=== PATIENT | male | born 1935 | race Caucasian/White ===

== ENCOUNTER 2021-03-16 16:54 | Inpatient (IN) | payer OTHER ==
[~2021-03-16] VITALS: Ht 175.3 cm; Wt 62.6 kg
[2021-03-16 23:48] VITALS: BP 118/52
--- NOTE | 2021-03-17 05:39 | NUR ---
PATIENT CAME INTO THE UNIT AT 2340. HE IS ADMITED TO ROOM 521-A UNDER THE CARE OF DR COLLINS. HE IS ALERT AND ORIENTED. MAX ASSIST WITH CARE. HE IS CONFUSED AND FORGETFUL. ABLE TO VERBALIZE NEEDS. HE HAS A SKIN TEAR TO HIS RIGHT ARM. VITAL SIGN AT 118/52,18,59, 99%,97.0,WT IS 136.9 LBS. LUNGS ARE CLEAR, DENIES SI/AVH/HI. BS ACTIVE X4 QUAD, ABD IS SOFT AND NONE TENDER. LBM IS 03/16/21.HE IS INCONTINET OF BOWEL AND NURSES PROVIDED PERICARE. CALL TO THE DR FRANKLIN AND MEDS WERE VERIFIED.THE HOSPITALIST WAS CONSULTED.MURALI IS SLEEPING CALM IN BED AT THIS TIME. BED IS LOW, LOCKED AND ALARMED. YELLOW TOP AND SOCKS ON PER FALL PROTOCOL. CONSENT TO TREAT OBTAINED FROM DAUGHTER NITO MACK. Q 12 MINUTES CHECK IS ONGING. CONTINUE CARE AND MONITOR.
[2021-03-17 05:44] LABS: ABSOLUTE NEUTROPHILS 1.6 thou/uL (1.4-8.2); BASOPHILS 1.4 % (0.0-2.0); EOSINOPHILS 1.3 % (0.0-3.0); HEMATOCRIT 27.7 % (42.0-52.0); HEMOGLOBIN 9.6 gm/dL (14.0-18.0); LYMPHOCYTES 52.6 % (24.0-44.0); MCH 33.7 pg (26.0-34.0); MCHC 34.5 g/dL (28.0-37.0); MCV 97.7 fL (80.0-100.0); MONOCYTES 8.5 % (1.0-8.0); PLATELET COUNT 284 thou/uL (150-400); POLYS 36.2 % (36.0-66.0); RBC 2.84 mil/uL (4.50-6.00); RDW 15.9 % (10.5-14.5); WBC 4.6 thou/uL (4.0-11.0)
[2021-03-17 06:08] LABS: CHOLESTEROL 108 mg/dL (<200); HDL CHOLESTEROL 39 mg/dL (>40); LDL CHOLESTEROL 50 mg/dL (<100); TC:HDL 2.8 Ratio (Not establshd); TRIGLYCERIDE 97 mg/dL (<150); VLDL 19 mg/dL (<40)
[2021-03-17 06:09] LABS: SERUM ASSESSMENT Clear
[2021-03-17 07:45] VITALS: BP 130/64
[2021-03-17 09:18] LABS: % SATURATION 46 % (20-39); IRON 50 ug/dL (65-175); TIBC 108 ug/dL (250-450)
[2021-03-17 09:21] LABS: FOLIC ACID 16.4 ng/mL (8.6-58.9)
[2021-03-17 09:31] VITALS: BP 130/64
--- NOTE | 2021-03-17 13:31 | NUR ---
Alert and orientated to name only. Denies SI/HI. Initially refused to get out of bed for breakfast, compliant on second approach. Calm, cooperative and compliant with meds. Refused to leave room for lunch, approached 3 times. Ambulates with walker with regular, steady gait. Breath sounds clear. Reg HR auscultated. Color pink with brisk capillary refill and palpable peripheral pulses. No edema. Voided large amt yellow urine in toilet and then was incontinent of urine. Initially refused to change clothes but then was compliant with assistance. Bladder scanned x 3 around noon 108-131. Hyperactive bowel sounds over soft, flat abdomen. Currently sleeping in bed without s/o distress.
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
[2021-03-17 19:46] VITALS: BP 111/60
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
--- NOTE | 2021-03-18 02:08 | NUR ---
03-17-21 CARE TRANSFERRED 1899. LATER PT RESTING IN BED WITH EYES CLOSED, EASILY AWAKEN TO VOICE, PT AAOX1, VSS, RR EVEN AND NONLABORED ON RA. PT DENIES SI/HI AND PAIN. PT HAD NO DIFFICULTY TAKING MEDICATION WHOLE WITH WATER. PT PRESENTS DROWSY AND CALM. PT WILL CONTINUE TO BE MONITOR PER [facility] PROTOCOL.
[2021-03-18 09:16] VITALS: BP 79/38
--- NOTE | 2021-03-18 11:41 | NUR ---
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 Other Hx diabetes well controlled with A1C of 7. Folate wnl, on B12 supplementation. Chart notes pt had poor intake and wt loss prior to admit (unknown quantity). Since admit has eaten 80-100% of meals and took HS snack. Can offer glucerna shake 1x day until further intake trends identified. Otherwise low nutrition risk
--- NOTE | 2021-03-18 17:26 | NUR ---
Assumed pt care at 0700. pt was in his room sleeping. Alert and oriented to self. pt was confused. Vital sign stable. No c/o pain at this time. Denies si/hi. calm, cooperative with care and assessments. Took meds whole with thin liquid, no difficulty noted. Ambulates with a walker. Pt AM blood pressure was low. DR Pedroza and DR Olmedo notified. Blood pressure meds were held. 0.9% 500ml sodium chloride was administered. pt had 3 voids this shift. AT this time pt is in the day room eating dinner. Will continue to monitor.
[2021-03-18 20:13] VITALS: BP 108/50
--- NOTE | 2021-03-19 03:21 | NUR ---
03-18-21 CARE TRANSFERRED 1899. LATER PT PRESENTS DROWSY BUT EASIY AWAKEN TO VOICE, PT AAOX1, VSS, RR EVEN AND NONLABORED ON RA. PT DENIES PAIN AND SI/HI. ASSISTED PT TO BATHROOM, VOIDED, YELLOW IN TOLIET. PT BED WAS ADJUSTED FOR COMFORT, LOWEST POSITION, LOCKED AND ALARM ON. DURING MEDICATION ADMIN PT HAD NO DIFFICULTIES TAKING MEDICATION WHOLE WITH WATER. PT WILL CONTINUE TO BE MONITOR PER [facility] PROTOCOL.
--- NOTE | 2021-03-19 14:15 | NUR ---
Assumed pt care at 0700. pt was in his room awake. alert and oriented to person. pt was uncooperative with care. Denies si/hi, denies pain. refused meds, refused vital sign and blood sugar assessments. Pt was irritable, aggressive towards staff. COMPLIANCE ENGINEER PRODUCTS AND SENIOR JAVASCRIPT DEVELOPER tried to assist pt. Pt refused. DR Pedroza was notified of pt behavior. assessed pt. PRN Olanzapine 3.75mg was ordered and administered for increased agitation. pt have a skin tear on both arms as a result of his aaggressive and combative behaviors. Gauze was wrapped around pt skin tears. Pt ate lunch. AT this time pt is cooperative with care. AMbulates with a walker. will continue to monitor.
[2021-03-19 16:24] VITALS: BP 138/56
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
--- NOTE | 2021-03-20 09:10 | NUR ---
PT AGITATED THIS MORNING. YELLING. PT REFUSED MEDICAIONS IM INJECTION GIVEN. PT ALSO REFUSED ACCU CHECK AND BREAKFAST. VSS PT REFUSED TO ANSWER ANY ASSESSMENT QUESTIONS. PT UP WALKING AROUND THE UNIT WITH WALKER. WILL CONTINUE TO MONITOR.
[2021-03-20 09:26] VITALS: BP 130/58
[2021-03-20 19:20] VITALS: BP 120/57
[2021-03-20 20:10] VITALS: BP 120/57
--- NOTE | 2021-03-21 03:24 | NUR ---
PATIENT CARE WAS RESUMED AT 1900. HE IS ALERT AND ORIENTED. MODERATE ASSIST WITH CARE. HE WAS IN BED RELAXING AND HE DENIES PAINS/SI/AVH/HI. HE IS CONTINET OF BOWEL AND BLADDER AND ABLE TO VERBALIZE NEEDS. TOOK HIS MEDS WHOLE. NO BEHAVOUR NOTED AT THIS TIME.BED IS LOW, LOCKED AND ALARMED.Q 12 MINUTES CHECK IS ONGONG . CONTINUE CARE AND MONITOR.
[2021-03-21 09:45] VITALS: BP 91/32
--- NOTE | 2021-03-21 10:00 | NUR ---
Assumed pt care at 0700. Pt was in his room sleeping. Alert and oriented to person. Active bowel sounds, lung clear on auscultation, NO c/o pain. Denies si/hi. No sign of acute distress upon assessments. Calm and cooperative with care. Took meds whole, no difficulty noted. Ambulates with a walker. Makes needs known to staff. At this time, pt have voided twice. Pt is currently in his room awake. Will continue to monitor.
[2021-03-21 20:32] VITALS: BP 118/56
[2021-03-22 10:22] VITALS: BP 127/65
--- NOTE | 2021-03-22 17:50 | NUR ---
Assumed pt care at 0700. pt was in his room resting. Alert and oriented to self. Assessments completed, vss. Denies si/hi, denies pain. Took meds whole with thin liquid, no difficulty noted. Pt ambulates with a walker. calm and cooperative with care. No sign of acute distress noted upon assessments. pt attended activities. At this time pt is in his room resting.
[2021-03-22 19:21] VITALS: BP 116/51
[2021-03-22 20:07] VITALS: BP 116/51
--- NOTE | 2021-03-23 04:19 | NUR ---
PATIENT CARE WAS RESUMED AT 1900. HE IS ALERT AND WAS RESTING IN BED. ABLE TO VERBALIZE HIS NEEDS. HE IS A MODERATE ASSIST WITH CARE. ABD IS SOFT NONE TENDER. HE TOOK HIS MEDS WHOLE . LUNGS ARE CLEAR , BS ACTIVE X4 QUAD. HE IS ON FALL PROTOCOL. NO BEHAVIOR NOTED AT THIS TIME. HE DENIES PAINS/SI/AVH/HI. BED IS LOW, LOCKED AND ALARMED. YELLOW TOP AND NONE SKID SOCK ON. q12 MINUTES CHECK IS ONGOING. CONTINUE CARE.
[2021-03-23 09:46] VITALS: BP 93/60
--- NOTE | 2021-03-23 11:18 | NUR ---
RT Progress Note- Maximo's presence in the milieu has been slim, as he is unhappy with his admission and chooses to keep to himself during unscheduled time. Maximo is now compliant with requests for him to attend groups and participates moderately. Mood remains angry and frustrated. DISC RECORDIST will continue to encourage participation and progress towards goals.
--- NOTE | 2021-03-23 14:31 | NUR ---
DUANE recieved a call from Carlene. Carlene inquired if a production editor could look at the Pt's toes while on the unit. DUANE informed this request would be given to the doctor. However it may not be possible and Pt would need an outpt appointment to be seen by a production editor. Carlene also inquired about placement for the Pt. DUANE referred Carlene to the Medicare.gov website to search facilities. DUANE also encouraged Carlene to start looking at facilities and let DUANE know where she would like referrals sent to. Carlene had no further questions or concerns. DUANE will continue to follow
--- NOTE | 2021-03-23 16:05 | NUR ---
Assumed pt care at 0700. pt was in his room sleeping. Alert and oriented to person, place, and Time. calm and cooperative with care. Denies si/hi, denies pain at this time. Assessments completed, vss. Took meds whole, no difficulty noted. Ambulates with a walker. Dressing change to skin tears, to both arms. No sign of acute distress noted upon assessments. AT this time pt is in his room resting. WILL CONTINUE TO MONITOR.
[2021-03-23 20:10] VITALS: BP 131/69
[2021-03-23 20:30] VITALS: BP 131/69
--- NOTE | 2021-03-24 05:17 | NUR ---
PATIENT CARE WAS RESUMED AT 1900. HE IS ALERT AND ORIENETED. CALM ABD ABLE T TO VERBALIZE HIS NEEDS. HE DENIES PAINS /SI/AVH/HI. HE IS CONTINIET OF BOWEL AND BLADDER. BED IS LOW, LOCKED AND ALARMED. HE TOOK HIS MEDS WHOLE. NO BEHAVOIR NOTED THIS SHIFT. ABD IS SOFT, FLAT AND NONE TENDER AND LUNGS ARE CLEAR. CONTINUE CARE AND [id number] CHECKS ARE ONGONIG.
[2021-03-24 09:28] VITALS: BP 100/54
--- NOTE | 2021-03-24 09:52 | NUR ---
followup: remains on [facility] unit. Eating >75% most meals, wt up 5 lb and new BMI 21-healthy range. BG controlled. Continue to offer glucerna shake for now. Remains low nutrition risk
--- NOTE | 2021-03-24 16:25 | NUR ---
Assumed patient care at 0700, patient was sitting in the day room, alert and oriented x4, calm and pleasant, VSS, ate 100% of his meal, active bowel sound, lungs clear, attend groups and paticipated, he took his medication whole, ambulate with walker, he is able to verbalized needs, he denies HI/SI/AVH. will continue to monitor patient.
--- NOTE | 2021-03-24 17:31 | NUR ---
DUANE recieved a call from the Pt's , Lissette Bauer. SW provided an update on the Pt. DUANE infomred that Pt's behaviors have improved and referral can now be sent out. Lissette expressed being happy to hear this information. Lissette wanted to know if talking to the Pt would be okay or would it upset him. DUANE encouraged family call at this time espicially with the improved behaviors Pt may enjoy calls from family. DUANE transfered the call to the frontend engineer for the Pt to speak with Lissette.
[2021-03-24 20:02] VITALS: BP 124/49
[2021-03-24 20:30] VITALS: BP 124/49
--- NOTE | 2021-03-25 05:12 | NUR ---
[facility] CARE WAS RESUMED AT 1900. HE WAS IN BED. ALERT AND ORIENTED. SHE DENIES PAINS AND BS ACTIVE , LUNGS ARE CEAR, BS CTIVE X 4 QUADS. HE IS CONTINIET OF BOWEL AND BLADER. BED IS LOW , LOCKED AND ALARMED. Q 12 MINUTES CHECK. NO BEHAVOUR NOTED THIS SHIFT. Q 12MINUES CHECK FOR SAFETY. HE TOOK IS MEDS WHOLE.
--- NOTE | 2021-03-25 11:34 | NUR ---
Care of patient was resumed at 0700, patient was still in bed sleeping, came out for breakfast, B/P 124/49 with pulse of 105, patient complained of being tired, doctor Jacinta said he will talk to doctor Yovany to adjust his medication. Patient was calm and cooeprative during assessment, he is alert and oriented x4, active bowel sound, lungs clear, RR even and nonlabored on room air, he ambulate with walker, incontinent of bladder and bowel. Patient denies SI/HI/AVH, will continue to monitor patient.
--- NOTE | 2021-03-25 15:57 | NUR ---
SW sent referrals to the following facilities: [facility] Nito [facility]- Declined due to behaviors Feliz Zhu and [facility] SW will follow up
--- NOTE | 2021-03-25 16:34 | NUR ---
Patient fall risk precaution has been updated due to patient getting weaker, he is now incontinent of bladder. will continue to monitor.
--- NOTE | 2021-03-25 17:53 | NUR ---
Patient insulin was held for dinner due to patient refused to eat. doctor Yovany was notified,
[2021-03-25 19:30] VITALS: BP 131/68
[2021-03-25 19:31] VITALS: BP 188/90
[2021-03-25 19:33] VITALS: BP 131/57
[2021-03-25 20:05] VITALS: BP 131/68
--- NOTE | 2021-03-25 22:16 | NUR ---
Assumed care on 03/25/21 @ 1900, no behaviors noted this evening. VSS cooperated with assesssment and compliant with medications, taking meds whole with applesauce and water. PRN Tylenol 650mg for general pain of 6/10. Retired to bed @ , bed in low position, bed alarm set, will continue to monitor for safety and comfort.
--- NOTE | 2021-03-26 10:54 | NUR ---
RELUCTANT TO ATTEND AM GROUPAND DID ATTEMPT T0 GO TO ROOM AFTER BREAKFAST-INFORMED OF ROOM LOCK OUT- APPEARS PERPLEXED STATING "I CAN'T LAY DOWN" AND "WHY WOULD ROLO LOCK ME OUT"ORIENTED TO NAME ONLY-REFUSES TO COMPLY WITH FALLS PRECAUTIONS - HE REPEATDLY HAS STATED HE WOULD ASK FOR HELP PRIOR RO STNADING UP -APPROX 20 MINUTES LATER WHEELED SELF BACK TO ROOM-TURNED OFF CHAIR ALARM AND GOT SELF INTO BED-CONSTRICTED AFFECT. DENIES SI/SH/HI. DENIES C/O PAIN/DSICOMFORT
[2021-03-26 20:04] VITALS: BP 96/42
--- NOTE | 2021-03-27 01:24 | NUR ---
Assumed care on 03/26/21 @ 1900, seated in the day room at a table. Provided medications whole with water. A&Ox1 Ate an evening snack and retired to bed. Has trouble swollowing his meds whole and rolled meds around in his mouth for quite a while before being able to swollow. Bed in low position, will continue to monitor for safety and comfort as per unit protocol.
--- NOTE | 2021-03-27 19:48 | NUR ---
HAS BEEN NOTED TO IMMEDIATLY GO INTO ROOM AT END OF GROUP AND WILL NOT COME BACK OUT OF BED WITHOUT STAFFBRINGING HIM OUT-DENIES PAIN OR DISCOMFORT STATING "I JUST WANT TO SLEEP""I DON'T WANT TO EAT OR DO ANY OF THAT OTHER STUFF JUST LEAVE ME ALONE" ROOMJENNITE HAS REQUIRED SEVERAL IM MEDS TODAY AND LAST PM AND PT REPORTS THAT THIS IS UPSETTING HIM AND KEPT HIM AWAKE MOST OF THE NIGHT. REFUSED TO COME OUT TO EAT SUPPER AND REFUSED TRAY WHEN BROUGHT TO ROOM STATING DIDN'T WANT IT. BLOOD SUGAR AT 1630 173-S.S INSULIN 3 UNITS HELD D/T PT REFUSAL TO EAT =DR. WHITE CONTACTED . NO NEW ORDERS RECEIVED. USINFG ROLLER WALKER FOR AMBULATION-GAIT STEADY WITH ASSISTIVE DEVICE. DENIES SI/SH
[2021-03-27 20:00] VITALS: BP 96/42
--- NOTE | 2021-03-28 00:14 | NUR ---
PT. MOVED TO 525 D/T ROOMMATE YELLING AND BEING AGITATED.
--- NOTE | 2021-03-28 00:16 | NUR ---
AT BEGINNING OF SHIFT PT WAS IN BED RESTING WITH EYES CLOSED BUT DID WAKE UP TO TAKE HIS MEDICATIONS WITHOUT ANY DIFFICULTY IS CALM AND COOPERATIVE.ALERT WITH SOME CONFUSION. EVERY 12 MINUTE CHECKS. DENIES PAIN OR DISCOMFORT AT THIS TIME. CONTINENT BUT HAS EPISODES OF INCONTINENCE WHEN HE DOESN'T MAKE IT TO THE BATHROOM ON TIME. NO SI/AVH/HI.
--- NOTE | 2021-03-28 03:51 | NUR ---
At about midnight went into pt room 521A because his roommate was screaming and hollering, shaking bed rails and keeping this pt awake. Pt voiced fustration. I discussed I understood and gave the option of moving him to another room. Pt initially was going to stay in the room but decided he would like to try to move to the other room. Pt is not as impulsive as he was when he admitted so he is able to be in a room not as close to the nurses station. Pt was relocated to 525b and he looked more relaxed. bed alarms set and Q 12min checks remain in place. will continue to monitor.
[2021-03-28 05:20] VITALS: BP 91/71
[2021-03-28 06:05] VITALS: BP 96/42
[2021-03-28 06:20] VITALS: BP 99/50
--- NOTE | 2021-03-28 06:37 | NUR ---
At about 5:20 notified that pt was found on the floor, unwitnessed fall, Went to pt room, pt assisted with getting off the floor, pt did have multiple skin tears noted on his left arm and they were bleeding, cleansed, non adherent bandage applied and wrapped with coban, Pt does endorse that he hit his head, Pt was able to move all of his extremities and denies pain, no bruising noted to his head. Shanta TOLENTINO notified at 0530 and since it was an unwitnessed fall and pt endorsed that he hit his head a CT Scan w/o contrast was ordered. Cortez ROLLINS notified pt daughter Carlene, and she would like to be notified of CT results or of any changes. Post fall precaution completed, vitals are stable, pt Mentation status is at baseline. Careplan updated.
[2021-03-28 09:06] VITALS: BP 98/49
[2021-03-28 19:00] VITALS: BP 94/43
--- NOTE | 2021-03-28 19:37 | NUR ---
Assumed care on 03/28/21 @ 1900, in bed respirations even and unlabored, HRRR, breath sounds CTA bilat, ABD N x 4Q. Bed in low position, bed alarm set, will continue to monitor for safety and comfort.
[2021-03-28 19:49] VITALS: BP 94/43
[2021-03-29 09:27] VITALS: BP 97/48
[2021-03-29 10:44] VITALS: BP 101/68
--- NOTE | 2021-03-29 12:15 | NUR ---
1215 RESUMMED CARE FROM OVERNIGHT SHIFT THIS AM, PATIENT SITTING IN THE DAY ROOM QUIET. DURING BREAKFAST PATIENT TALKED ZARIA العراقي ABOUT HIS STAY IN [place]. PATIENT DENIES SI/HI/AH/VH AT PRESENT PATIENTS ABDOMEN SOFT BOWEL SOUNDS PRESENT. PATIENTS LUNGS CLEAR PATIENT CALM COOPERATIVE HAS NOT DISPLAYED ANY BEHAVIORS. PATIENT DOES ATTEND GROUPS BUT ALSO LIKES TO GO TO ROOM TO REST. PATIENT STATES SOME OF THE PATIENTS ARE GETTING ON HIS NERVES. WILL CONTINUE PATIENT FOR SAFETY AND BEHAVIORS.
[2021-03-29 19:35] VITALS: BP 117/52
[2021-03-30 09:09] VITALS: BP 116/56
[2021-03-30 09:47] VITALS: BP 116/56
--- NOTE | 2021-03-30 10:40 | NUR ---
1040 RESUMMED CARE FROM OVERNIGHT SHIFT THIS AM, PATIENT SITTING IN DAY ROOM QUIET. PATIENT ATE BREAKFAST TOOK MEDICATION WITHOUT INCIDENCE; PATIENT DENIES SI/HI/AH/VH AT PRESENT. PATIENT ORIENTED TIMES 4 PATIENT ABDOMEN SOFT BOWEL SOUNDS PRESENT. PATIENTS LUNGS CLEAR PATIENT CALM COOPERATIVE PATIENT LIKES TO BE TO SELF. WILL CONTINUE TO MONITOR PATIENT FOR SAFETY AND BEHAVIORS.
--- NOTE | 2021-03-30 14:03 | NUR ---
RT Progress Note- Maximo's presence in the milieu and recreation therapy groups has been inconsistent throughout this review period. Maximo prefers to keep to himself and remains in his room between meals. He does not always attend groups because of this. When awake and present, Maximo has been pleasant and has not shown aggression or agitation. RADIO COMMUNICATION COORDINATOR will continue to encourage progress towards goals.
[2021-03-30 19:00] VITALS: BP 105/51
--- NOTE | 2021-03-31 03:13 | NUR ---
03-30-21 CARE TRANSFERRD 1899. LATER PT AAOX2, VSS, RR EVEN AND NONLABORED ON RA. PT DENIES PAIN AND SI/HI. PT PRESENTS CALM AND COOPERATIVE. STANDBY, OBSERVED PT GETTING OUT OF BED WITH WALKER AND GOING TO BATHROOM, PT HAD NO DIFFICULTIES VOIDING, YELLOW IN TOLIET. DURING MEDICATION ADMIN PT HAD NO PROBLEMS, PT BED WAS ADJUSTED FOR COMFORT, LOWEST POSITION, LOCKED, ALARM ON. LATER RESPONSED TO PT BED ALARM AND STANDBY ASSIST PT USING WALKER TO TOLIET, PT HAD NO DIFFICULTIES VODING, YELLOW, IN TOLIET. PT WANTED TO GO TO DAY ROOM, EARLIER PT HAD REFUSED HS SNACK, BUT AT THIS TIME HE REQUESTED A SNACK, PT HAD PEANUT BUTTER AND CRACKERS, WITH CARTON OF MILK. LATER NOTED PT RESTING IN RECLINER WITH EYES CLOSED. PT WILL CONTINUE TO BE MONITOR PER [facility] PROTOCOL.
--- NOTE | 2021-03-31 08:22 | NUR ---
Nutrition follow up: Remains on [facility] unit. Noted with variable intakes at meals but requesting snacks as alternative. 100% intakes Glucerna. Weight stable. BG remains controlled. Remains low nutrition risk.
--- NOTE | 2021-03-31 12:45 | NUR ---
[facility] [place]
--- NOTE | 2021-03-31 12:47 | NUR ---
[facility] due to behavioral concerns [place]- due not being able to meet the Pt's needs
--- NOTE | 2021-03-31 12:52 | NUR ---
Alert and orientated to person and place. Denies SI/HI. Cooperative with getting out of bed for meals and groups. Happy affect today. Denies SI/HI. Compliant with meds. Breath sounds clear. Reg HR auscultated. Color pink with brisk capillary refill and palpable peripheral pulses. Independent with voiding. Bladder scan 75-88 cc. Active bowel sounds over soft, flat abdomen. Healing skin tears over forearms and lower arms, open ones cleaned with NS and dressed with nonadhesive drsg and coban. Ambulates with walker with regular, steady gait.
[2021-03-31 19:41] VITALS: BP 100/82
[2021-03-31 19:43] VITALS: BP 100/52
--- NOTE | 2021-04-01 04:35 | NUR ---
03-31-21 CARE TRANSFERRED 1899. LATER PT AAOX2, VSS, RR EVEN AND NONLABORED ON RA, PT DENIES PAIN AND SI/HI. PT PRESENTS PLESANT, CALM AND COOPERATIVE AND SPEAKES ABOUT HIS TIME IN . OBSERVED PT AMBULATE TO BATHROOM WITH WALKER, VOID IN TOLIET. DURING MEDICATION PT HAD NO DIFFICULTIES TAKING MEDICATION WHOLE WITH WATER, PT BED WAS ADJUSTED FOR COMFORT. LATER NOTED PT RESTING WITH EYES CLOSED. PT WILL CONTINUE TO BE MONITOR PER [facility] PROTOCOL.
[2021-04-01 09:42] VITALS: BP 109/56
--- NOTE | 2021-04-01 15:57 | NUR ---
PATIENT CARE ASSUMED AT 0700 - PATIENT HAS BEEN CALM AND PLEASANT. MAKES CONVERSATION. AMBULATES INDEPENDENTLY. COMPLIANT WITH MEDICATIONS. ASKS FREQUENTLY ON WHY HE HAS BEEN HERE SO LONG AND WHEN HE WILL FIND PLACEMENT. PATIENT EATS WELL - STATES HAS LOST ALOT OF WEIGHT AT ONE TIME. HAS BEEN OUT ON UNIT MOST OF THE DAY. PARTICIPATED IN ACTIVITIES FOR SHORT TIME. UTILIZES WALKER WHEN OUT ON UNIT. NOT AGITATION OR IRRITATION NOTED.
[2021-04-01 19:18] VITALS: BP 122/82
[2021-04-01 19:40] VITALS: BP 122/82
--- NOTE | 2021-04-01 23:06 | NUR ---
Assumed care on 04/01/21 @ 1900, A&Ox1-2, could not name president or food service representative, but volunteered information about each. Spoke about service, and able to name the year and month, but not the date. Dressings on forearms C/D/I. Reports Bm today. Retired to bed and in bed with eyes closed, respirations even and unlabored @ HS. Bed in low posiiton, will round on patient q 12 minutes as per unit protocol.
--- NOTE | 2021-04-02 09:01 | NUR ---
0901 ASSUMED CARE OF PT FROM OVERNIGHT NURSE. PT DENIES PAIN AT TIME OF ASSESSMENT. PT LUNG CLEAR. PT DENIES si/hi/ah/vh. pt abdomen soft, bowel sounds present. pt medication compliant. pt alert times 1. pt ambulates w ast of 1 and walker. pt lying down in room at this time. will cont to monitor pt for safety and behaviors.
--- NOTE | 2021-04-02 18:58 | NUR ---
Pt was accepted by [facility]. DUANE contacted the [place] Liasion concerning the matter. DUANE was told [place] could not complete the contract with the facility due to the facility being under new ownership and having a name change. Pt's DPOA was notified of this information. [facility] is willing to accept the Pt only after a 14 day quarantine, as the Pt is not COVD vaccinated. Pt could be placed at [facility] to complete the quarantine and then transfered to [facility]. DUANE did speak with the DPOA, Carlene, concerning the matter. Carlene stated she would need the kulkarni for the 14 day stay. DUANE contacted Viridiana Parikh, the [place] clerical coordinator, concerning the matter. Viridiana stated she would reach out to the family to answer questions. Pt is scheduled to complete a zoom assessment with Hamida 04/03/2021 @ 11:30.
[2021-04-02 19:50] VITALS: BP 122/82
[2021-04-03 09:20] VITALS: BP 99/58
--- NOTE | 2021-04-03 12:46 | NUR ---
Alert and orientated to person and place. Calm and cooperative. Denies SI/HI. Breath sounds clear. Reg HR auscultated. Color pink with brisk capillary refill and palpable peripheral pulses. No edema noted. Independent with voiding. Active bowel sounds over soft, flat abdomen. Ambulating without difficulty around unit with walker. Dressings removed from arms. All healed except for skin tear on left forearm, cleaned with NS and nonadhesive drsg. Currently in day room without s/o distress.
[2021-04-03 19:39] VITALS: BP 117/53
[2021-04-04 09:31] VITALS: BP 107/58
--- NOTE | 2021-04-04 11:31 | NUR ---
CONSTRICTED AFFECT-WILL COME OUT OR ROOM TO MEALS AND GROUPS PER ROOM LOCKOUT BUT DURING ANY UNSTRUCTURED TIME WILL RETREAT TO ROOM. LITTLE NOTED INTERACTION WITH PEER GROUP-DOES COMMENT ON NOISE LEVEL BEHAVIOR OF 2-3 LOUD DISRUPTIVE PEERS WHO HAVE BEEN AGITATED AND YELLING MAJORITY OF AM STATING "THEY HAVE BEEN YELLING AND FUSSING LIKE THAT 2-3 DAYS NOW-MAKES ME CRAZY" GAIT SLOW BUT STEADY WITH USE OF ROLLER WALKER. DENIES SI/SH. DENIES ACUTE ANXIETY. DENIES C/O PAIN. NO NOTED OR REPORTED PSYCHOSIS OR PARANOIA.
[2021-04-04 19:40] VITALS: BP 111/50
[2021-04-04 20:12] VITALS: BP 111/50
--- NOTE | 2021-04-05 00:04 | NUR ---
PATIENT CARE WAS RESUMED AT 1900. HE IS ALERT AND ORINETED, ABLE TO VERBALISE HIS NEEDS. BS ACTIVE X4 QUADS.HE DENIES PAINS/SI/AVH/HI. HE IS CONTINENT OF BOWEL AND BLADDER. HIS LUNGS ARE CLEAR BUT DIMINISHED AT THE BASES. BED IA LOW, LOCKED AND ALARMED. HE TOOK HIS MEDS WHOLE.
[2021-04-05 09:13] VITALS: BP 85/21
[2021-04-05 19:15] VITALS: BP 125/61
--- NOTE | 2021-04-05 19:29 | NUR ---
HAS BEEN OUT OF ROOM MORE THIS SHIFT-ATTENDED GROUPS AND DID PARTICIPATE -SOCIAL WITH PEERS DURING UNSTRUCTURED TIME AND DID STAY OUT OF ROOM TO READ NEWSPAPER AND VISIT. REMAINS ON FALL PRECAUTIONS-FREQUENTLY FORGETS TO USE ROLLER WALKER DESPITE MULTIPLE PROMPTS TO DO SO.-REFUSES TO CALL FOR HELPBUT LUNA LEFT AT [employer]-DID REPORT LOOSING BALANCE IN ROOM AFTER SUPPERAND STRUCK SHOULDER ON WALL-PT STATES "IT MADE A LOUD NOISE BUT I HAD THAT BLANKET WRAPPED AROUND ME AND IT SOFTENED THE BLOW. SPOKE AT LENGTH DURING ABOUT MISTRUST OF AND DAUGHTER R/T THEM TAKING HIS VEHICLE AWAY AND BELIEVES "THEY ARE JUST TRYING TO GET MY MONEY-I HAVE OVER A MILLION IN 2-3 ABREU"
--- NOTE | 2021-04-06 03:46 | NUR ---
04-05-21 CARE TRANSFERRED 1900 OBSERVED PT SITTING IN DAY ROOM ON COUCH. PT AAOX2, VSS, RR EVEN AND NONLABORED ON RA. PT DENIES PAIN AND SI/HI. PT PRESENTS PLESANT, CALM AND COOPERATIVE. DURING MEDICATION PT HAD NO DIFFICULTIES. LATER RESPONDED TO BED ALARM AND OBSERVED PT SHUFFLING GAIT WITH WALKER. PT BED WAS ADJUSTED FOR COMFORT, LOWEST POSITION, LOCKED AND ALARM ON. PT WILL CONTINUE TO BE MONITOR PER [facility] PROTOCOL.
--- NOTE | 2021-04-06 11:11 | NUR ---
RT Progress Note- Maximo's presence in the milieu and groups has improved throughout this review period. Maximo is not resistant to coming out of his room, and appears to have a brighter affect. Maximo contributes to group discussions and is able to share his thoughts in an appropriate manner, not displaying agitation or aggression. RT team will continue to encourage his participation and progress towards goals.
--- NOTE | 2021-04-06 11:11 | NUR ---
CONTINUES TO BE OUT OF ROOM MORE TODAY-INTERACTING AND TALKATIVE WITH STAFF AND PEERS. MAJORITY OF CONVERSATION CONTINUES TO FOCUS ON AND DAUGHTER TRYING TO GET ALL OF HIS MONEY. APPETTITE FAIR. DENIES SI/SH/HI. CONVERSATION CIRCUMSTANTIAL AND DISORGANIZED AT TIMES-IMPULSIVE RE AMBULATION ATTEMPTING TO GET UP ON OWN MULTIPLE TIMES-WILL FREQUENTLY FORGET TO USE WALKER AND ENGAGE IN RISKY BEHAVIORS SUCH CARRYING TWO CUPS OF COFFEE ACROSS DAYROOM TO PEERS-CONTINUES ON FALL PRECAUTIONS
--- NOTE | 2021-04-06 17:24 | NUR ---
Pt declined by the following [place] [facility]- due to behaviors [place]- [facility] Due to behaviors
[2021-04-06 20:18] VITALS: BP 119/58
--- NOTE | 2021-04-07 06:12 | NUR ---
04-07-21 CARE TRANSFERRED 1900 OBSERVED PT SITTING IN DAY ROOM. LATER PT AAOX2, VSS, RR EVEN AND NONLABORED ON RA, PT DENIES PAIN AND SI/HI. PT PRESENTS PLESANT, CALM AND COOPERATIVE. DURING MEDICATION ADMIN PT HAD NO DIFFICULTIES. PT WILL CONTINUE TO BE MONITOR PER [facility] PROTOCOL.
--- NOTE | 2021-04-07 08:46 | NUR ---
followup: continues to eat >75% all meals. No new wt to assess. Low nutrition risk
[2021-04-07 09:34] VITALS: BP 113/52
--- NOTE | 2021-04-07 10:52 | NUR ---
1052 RESUMMED CARE FROM OVERNIGHT SHIFT THIS AM, PATIENT IN ROOM GETTING READY FOR BREAKFAST. PATIENT ATE BREAKFAST TOOK MEDICATION WITHOUT INCIDENCE. PATIENT ALERT TIMES TWO PATIENT DENIES SI/HI/AH/VH AT PRESENT PATIENT CALM COOPERATIVE. PATIENTS ABDOMEN SOFT BOWEL SOUNDS PRESENT PATIENTS LUNGS CLEAR. WILL CONTINUE TO MONITOR PATIENT FOR SAFETY AND BEHAVIORS.
--- NOTE | 2021-04-07 10:53 | NUR ---
Referral sent to: [facility]) [facility] (resent)
[2021-04-07 11:23] VITALS: BP 113/52
[2021-04-07 19:22] VITALS: BP 107/47
[2021-04-07 20:00] VITALS: BP 110/55
--- NOTE | 2021-04-07 23:23 | NUR ---
BOILER CONTROL ROOM OPERATOR TRIED TO HELP PATIENT TO CHANGE HIS BRIEF THAT WAS WET SOME AND PANTS HAD SMALL AMOUNT OF WET IN FRONT. PATIENT BECAME ANGRY AND COMBATIVE AND WOULD NOT CHANGE HIS PANTS ON HIS OWN OR ALLOW BOILER CONTROL ROOM OPERATOR TO HELP. THIS NURSE WENT IN TO SPEAK WITH PATIENT AND OFFERED HIM A CLEAN BRIEF AND PANTS AND HELP IF HE NEEDED IT. HE BECAME ANGRY AND WAS SWATTING THIS NURSE AWAY FROM HIM WITH HIS HAND. PATIENT LAID BACK DOWN IN BED. WILL TRY AGAIN LATER.
--- NOTE | 2021-04-08 02:03 | NUR ---
PATIENT UP TO THE BATHROOM. THIS NURSE HANDED PATIENT A CLEAN BRIEF AND ASKED IF HE NEEDED IT. PATIENT TOOK IT. ASKED HIM IF HE WOULD LIKE ANY HELP GETTING IT ON. HE SAID NO. RESIDENCE SUPERVISOR WAS IN ROOM WITH PATIENT AT TIME AND PATIENT HAD PUT BRIEF ON BACKWARDS AFTER STRUGGLING TO TRY AND GET IT ON. RESIDENCE SUPERVISOR ASKED IF SHE COULD HELP HIM GET ON IN BETTER POSITION. PATIENT GOT FRUSTRATED BUT TOLD RESIDENCE SUPERVISOR TO GO AHEAD AND HELP HIM. BRIEF CHANGED AND PATIENT BACK TO BED. HE HAS BEEN IN HIS ROOM ALL EVENING RESTING. DENIES SI/HI/AVH. DENIES PAIN. TOOK PILLS WHOLE WITHOUT INCIDENT. BED IN LOW POSITION AND BED ALARM ON. WALKER BESIDE BED. ROUTINE ROUNDS TO ASSESS SAFETY AND STATUS OF PATIENT.
--- NOTE | 2021-04-08 12:33 | NUR ---
PATIENT HAS BEEN UP, AND OUT ON THE UNIT, AMBULATE WITH ASSIST OF ROLLER WALKER, GAIT SLIGHTLY UNSTEADY. PATIENT TOOK ALL MEDICATION WHOLE WITHOUT DIFFICULTY, HE IS EATING MEALS, AND DRINKING FLID WELL. PATIENT DENIES SUICIDAL/HOMICIDAL IDEATION, HE DENIES DEPRESSION/ANXIETY, DENIES HAVING PHYSICAL PAIN. PATIENT PARTICIPATS IN GROUP THERAPY. PATIENT IS FORGETFUL, AND INTERMITTENT CONFUSION NOTED. NO AGITATION OR AGGRESSIVE BEHAVIOR NOTED AT THIS TIME, AFFECT IS FLAT/BLUNTED, MOOD IS EUTHYMIC. NO SIGN OF ACUTE DISTRESS NOTED AT THIS TIME, WILL MONITOR FOR SAFETY.
[2021-04-08 19:41] VITALS: BP 109/42
[2021-04-08 19:43] VITALS: BP 109/42
[2021-04-08 20:15] VITALS: BP 109/42
--- NOTE | 2021-04-09 02:05 | NUR ---
PATIENT CAME OUT TO DINING ROOM [facility] TO WATCH TV AND HAVE HS SNACK. HE HAS BEEN A/0X3 TONIGHT. HE STOPPED THIS NURSE TO LET ME KNOW THAT SOMEONE HAD LEFT THEIR KEYS HANGING IN THE LOCK AT THE KITCHEN AREA AND WANTED TO MAKE SURE NO OTHER PATIENT TOOK THEM. I THANKED HIM. WHEN I TOOK HIS HS MEDS TO HIM I HAD TO WAKE HIM AND HE WAS KIND AND POLITE. HE HAS BEEN CALM AND COOPERATIVE AND NO ISSUES. TONIGHT HE HAS TAKEN HIMSELF TO THE BATHROOM AND HAS CHANGED HIS BRIEF WHEN NEEDED. HE HAS BEEN ALERT AND LESS FRUSTRATED TONIGHT. PATIENT HAS BEEN USING HIS WALKER TO AMBULATE. HE HAS A STEADY GAIT. HE DENIES PAIN/SI/HI/AVH. BED IN LOW POSITION AND BED ALARM IS ON. ROUTINE ROUNDS TO ASSESS SAFETY AND STATUS OF PATIENT.
[2021-04-09 07:30] VITALS: BP 91/55
--- NOTE | 2021-04-09 12:08 | NUR ---
ATTEMPTED OT SESSION AT 1036. PT. REFUSING TO CONTINUE OT SERVICES. P.T. NOTES STATE PT. IS UP AD RENETTA ON UNIT. RN NOTES STATE PT. IS INDEP. WITH ADLS. DR. ROMERO AWARE OF PT. CURRENT FUNCTIONAL STATUS. FURTHER OT SERVICES NOT INDICATED AT THIS TIME.
[2021-04-09 15:30] VITALS: BP 110/50
--- NOTE | 2021-04-09 16:20 | NUR ---
Alert and orientated to person and place but not to time. Denies SI/HI. Calm, compliant and cooperative. 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 Breath sounds clear. Reg HR auscultated. Color pink with brisk capillary refill and palpable peripheral pulses. Voiding yellow urine per toilet. Active bowel sounds over soft, flat abdomen. Ambulates with walker with regular gait. Currently watching baseball game on TV without s/o distress.
[2021-04-09 19:48] VITALS: BP 113/56
[2021-04-09 22:08] VITALS: BP 113/56
--- NOTE | 2021-04-09 23:27 | NUR ---
Assumed care on 04/09/21 @ 1900, in bed, drowsy and with eyes closed, awakens to voice. A&Ox3 with confusion noted. HRRR, Lungs CTA, ABD N x4Q, toilets self. Meds provided whole and patient swollowed meds at first and then spit meds out and fussed about having to take medicine. Returned to sleep bed in low position, bed alarm set, will continue to monitor for safety and comfort.
[2021-04-10 09:16] VITALS: BP 93/49
--- NOTE | 2021-04-10 12:45 | NUR ---
Alert and orientated to person this AM. Denies SI/HI. States "I'm falling apart! My walker is falling apart." Calm, cooperative and compliant. Breath sounds clear. Reg HR auscultated. Color pink with brisk capillary refill and palpable peripheral pulses. +1 edema in R foot. Incontinent of large amt yellow urine in brief and on floor and in toilet. Active bowel sounds over soft, flat abdomen. Ambulates with steady gait with walker.
--- NOTE | 2021-04-10 16:38 | NUR ---
Pt UP AD RENETTA ON UNIT WITH WALKER AND HAS BEEN OBSERVED DOING SO. PER NSG, Pt HAS BEEN UP AMBULATING MOST OF DAY (SAFELY). WILL D/C P.T. AT THIS TIME Pt NO LONGER REQUIRES SKILLED P.T..
[2021-04-10 19:50] VITALS: BP 98/47
--- NOTE | 2021-04-10 19:52 | NUR ---
Assumed care at 04/10/21 @ 1900, patient noted to be sleeping in a bed in another patient's room. He was willing to be redirected to his bathroom, incontinent of bladder and continent of BM. Ambulated to the day room using walker. Will continue to monitor for safety and comfort.
[2021-04-10 20:18] VITALS: BP 98/47
[2021-04-11 06:44] LABS: URINE BILIRUBIN NEGATIVE (Negative); URINE BLOOD NEGATIVE (Negative); URINE CLARITY CLEAR; URINE COLOR YELLOW; URINE GLUCOSE-RANDOM* NEGATIVE (Negative); URINE KETONES NEGATIVE (Negative); URINE NITRITE-REFLEX NEGATIVE (Negative); URINE PROTEIN (DIPSTICK) NEGATIVE (Negative); URINE SPECIFIC GRAVITY <= 1.005 (1.005-1.035); URINE UROBILINOGEN 0.2 E.U./dl (0.2-1.0)
[2021-04-11 06:47] LABS: URINE LEUKOCYTES-REFLEX 3+ (Negative)
[2021-04-11 07:20] LABS: SQUAMOUS None Seen /LPF (0-3); URINE WBC-REFLEX >25 Many /HPF (0-5)
[2021-04-11 07:21] LABS: AMORPHOUS URATES Few /LPF (None Seen); BACTERIA-REFLEX 1-9 Few /HPF (None Seen); CASTS None Seen /LPF (None Seen); URINE RBC None Seen /HPF (NONE SEEN)
[2021-04-11 10:46] VITALS: BP 98/47
[2021-04-11 12:29] VITALS: BP 103/52
--- NOTE | 2021-04-11 17:10 | NUR ---
acetone recovery worker met with the pt. The pt. was in good spirits. He walked well and spoke clearly. The pt. initiated a conversation of the weather. He described the weather outside as "phuong". The pt. talked about some pain. When asked if he had discussed it with the doctor, he asked if that was the one who always wore ramirez. The pt. expressed not liking the doctor and wanting to "punch him in the face". The social work assistant explained that that wouldn't be a good idea and the pt. responded that it would at least get him out of here and in [facility]. The pt. did appear to be joking as he did have a smirk on his face.
--- NOTE | 2021-04-11 18:44 | NUR ---
HAS BEEN NOTED TO HAVE INCREASEIN ANXIETY/RESTLESSNESS THROUGHOUT SHIFT,UP AND DOWN MULTIPLE TIMES TO ROOM -SOMETIMES TO USE RESTROOM SOMETIMES TO LAY DOWN ETC. GAIT UNSTEADY BUT REFUSES TO USE WALKER CONSISTANTLY .
[2021-04-11 19:38] VITALS: BP 111/39
[2021-04-11 20:00] VITALS: BP 112/56
--- NOTE | 2021-04-12 05:09 | NUR ---
04-11-21 CARE TRANSFERRED 0 OBSERVED PT SITTING ON COUCH IN DINING ROOM. LATER PT AAOX2, VSS, RR EVEN AND NONLABORED ON RA. PT DENIES SI/HI AND PAIN. PT PRESENTS PLESANT, CALM AND COOPEATIVE. PT HAS TOLERATED CARES WELL. DURING MEDICATION PT HAD NO DIFFICULTIED TAKING MEDICATION WHOLE WITH WATER. PT BED ADJUSTED FOR COMFORT, LOWEST POSITION, LOCKED AND ALARM ON. PT WILL CNTINUE TO BE [id number] PER [facility] PROTOCOL.
[2021-04-12 09:40] VITALS: BP 114/51
[2021-04-12 09:58] VITALS: BP 114/51
[2021-04-12 10:31] VITALS: BP 114/51
--- NOTE | 2021-04-12 12:42 | NUR ---
PATIENT CARE ASSUMED AT 0700 - OBSERVED SITTING IN DINING AREA ON ARRIVAL. ALERT AND ORIENTED X 2 - RESPONSIVE TO Q UESTIONS ADDRESSED TO HIM. CALM AND AGREEABLE. MAKES NEEDS KNOWN. WHEN QUESTIONED ON HOW HE WAS FEELING AND READY TO DISCHARGED ADVISED THIS STAFF MEMBER HE NOW HAD MONEY. CLAIMS INHERITED A MILLION DOLLARS AND HIS IS TRYING TO GAIN ACCESS TO IT. STATES WANTS TO WILL IT TO [facility] BUT NOT UNTIL HE TURNS FIFTY AND ENTIRE FAMILY IS . WAS VERY ADAMANT ABOUT IT - COMPLIANT WITH MEDICATIONS - CONTINENT OF BLADDER AND BOWEL. MANUVERS AROUND WITH WALKER - ISOLATES TO ROOM OFTEN - USUALLY AFTER MEALS. HIGH FALL RISK AND NEEDS MONITORING WHEN SCOOTING AROUND WITH WALKER - UNSTEADY WITH GAIT AND BALANCE. WILL CONTINUE TO MONITOR PATIENT FOR SAFETY AND TO ADDRESS ANY CONCERNS OR CHANGE IN BEHAVIOR ACCORDINGLY.
[2021-04-12 20:09] VITALS: BP 117/96
--- NOTE | 2021-04-13 04:24 | NUR ---
04-12-21 CARE TRANSFERRED 1899 OBSERVED PT WALKING IN HALLWAY WITH WALKER. LATER PT AAOX2, VSS, RR EVEN AND NONLABORED ON RA. PT DENIES SI/HI AND PAIN. PT PRESENTS PLESANT, CALM AND COOPERATIVE. DURING MEDICATION ADMIN PT HAD NO DIFFICULTIES. PT BED WAS ADJUSTED FOR COMFORT, PT WILL CNTINUE TO BE MONITOR PER [facility] PROTOCOL. PT HAS BEEN UP SEVERAL TIMES TO VOID THROUGHOUT EVENING, NOTED PT HAS UTI, HCP Shanta SOOD NP CONTACTED OVER UTI LAB RESULTS.
[2021-04-13 09:36] VITALS: BP 100/56
--- NOTE | 2021-04-13 12:12 | NUR ---
RT Progress Note- Maximo's participation in the milieu and recreation therapy groups has dwindled throughout this review period. Maximo has expressed frustration about his stay in the hospital and has begun isolating to his room. He independently takes walks on the unit, and this is when he is easiest to persuede to socialize in the milieu. Maximo continues to enjoy talking about his time spent in the as well as his monetary "assets." RT team will continue to encourage his involvement in the milieu.
--- NOTE | 2021-04-13 14:12 | NUR ---
REPORTED BY PREVIOUS SHIFT TO HAVE HAD NO SLEEP DIURING NIGHT-WAS COMBATIVE WITH NURSING STAFF-WHEN ASKED HE BE BROUGHT OUT OF ROOM AGAINST HIS WILL. DIONICIO STATES "I AM NOT GOING ANYWHERE WITH THAT [place] AND "NO HE ISN'T A DOCOTOR DENIES SI/SH/HI
--- NOTE | 2021-04-13 18:11 | NUR ---
RESTLESS UP AND DOWN MULTIPLE TIMES THROUGHOUT SHIFT-APPROX EVERY 5-10 MINUTESTO USE RESTROOM OR TO LAY IN BED-APPEARS UNABLE TO SIT STILL FOR MORE DEXTER N 2-3 MINUTES AT A TIME -DENIES PAIN/DISCOMFORT-HAD TWO LARGE BM'S IN TOILET -BS ACTIVE X4-NO URINARY RETENTION NOTED UPON PALPATION OF PELVIC/BLADDER AREA-HAS VOIDED APPROX 840 CC THIS SHIFT-URINE IS SLIGHTLY DARK BUT NO NOTED ODOR OR SEDEMENT.
[2021-04-13 20:27] VITALS: BP 117/69
--- NOTE | 2021-04-14 04:47 | NUR ---
04-14-21 CARE TRANSFERRED 1899. LATER PT AAOX2, VSS, RR EVEN AND NONLABORED ON RA. PT DENIES PAIN AND SI/HI. PT PRESENTS PLESANT, CALM AND COOPERATIVE THROUGHOUT NURSING CARES. DURING MEDICATION ADMIN PT HAD NO DIFFICULTIES TAKING PILLS WHOLE WITH WATER. LATER PT HAD SMALL MISHAP DURING VOIDING, PT WAS ASSISTED WITH CHANGING AND PT TOLERATED WELL. PT WILL CONTINUE TO BE MONITOR PER [facility] PROTOCOL.
[2021-04-14 07:58] VITALS: BP 125/61
--- NOTE | 2021-04-14 09:50 | NUR ---
Followup: remains on [facility] unit since 03/16. Usually eats well but past few days intake has dropped 0-40%. Receives glucerna shakes and drinks at HS. Weights highly variable 136-151 lb since admit. Most recent wt 146 lb. Continue to monitor intake and offer glucerna. Remains low nutrition risk at this time.
[2021-04-14 16:41] VITALS: BP 125/61
[2021-04-14 20:38] VITALS: BP 119/63
--- NOTE | 2021-04-15 03:23 | NUR ---
[facility] CARE WAS RESUMED AT 1900. HE IS ALERT AND ORIENTED WITH SOME CONFUSION. HE DENIES PAINS,SI/AVH/HI. HE AMBULATES WITH WALKER AND EMILIANO TO VERBALISE HIS NEEDS. TOOK HIS MED WHOLE AND BS ACTIVE X4 QUADS. NO CONCERN NOTED AT THIS TIME. HE IS CONTINENT OF BOWEL AND BLADDER. BED IS LOCK, LOW AND ALARMED.
[2021-04-15 09:46] VITALS: BP 112/52
[2021-04-15 14:30] LABS: ABSOLUTE NEUTROPHILS 12.7 thou/uL (1.4-8.2); BASOPHILS 0.4 % (0.0-2.0); HEMATOCRIT 29.9 % (42.0-52.0); HEMOGLOBIN 9.8 gm/dL (14.0-18.0); LYMPHOCYTES 8.6 % (24.0-44.0); MCH 32.9 pg (26.0-34.0); MCHC 32.7 g/dL (28.0-37.0); MCV 100.5 fL (80.0-100.0); MONOCYTES 12.7 % (1.0-8.0); PLATELET COUNT 331 thou/uL (150-400); POLYS 78.3 % (36.0-66.0); RBC 2.97 mil/uL (4.50-6.00); RDW 16.3 % (10.5-14.5); WBC 16.3 thou/uL (4.0-11.0)
[2021-04-15 14:50] LABS: CALCIUM 9.4 mg/dL (8.5-10.1); CREATININE 2.1 mg/dL (0.7-1.3)
--- NOTE | 2021-04-15 15:14 | NUR ---
Patient observed sitting himself on the floor in his room. Dr. Loyola arrived and requested assistance helping patient back up into a chair. Patient weak, lethargic, mumbling, difficulty speaking. Hernia protruding from abdomen, tender to the touch. Dr. Loyola reported he would be ordering labs. When Dr. Loyola left the room, patient slumped forward in chair. Patient had been incontinent of bladder and bowel which is not routine for patient. Patient unresponsive to painful stimuli. Staff stayed with patient while vital machine was collected, Dr. Pedroza paged and rapid response called. Radial pulse 38, skin pale, difficulty holding his head up, would not answer questions. Patient is primarily very vocal when staff attempt to touch or assist him. Dr. Pedroza transferred patient to bed. O2 increased to 96%. RT arrived and placed O2 2L/min per NC continuously. Blood drawn by lab. EKG completed. IV placed to right forearm. Orders placed for IV fluids and 1:1 at all times. Straight cath completed, UA obtained. Drained 1600cc dark yellow, cloudy urine. Incontinent care provided and situated for comfort in bed. Barrier cream applied. 1:1 at bedside. Care transferred to AYO Rai.
--- NOTE | 2021-04-15 15:44 | EKG ---
[address] X[address] [place] [address] ELECTROCARDIOGRAM REPORT Name: DIONICIO HERNANDEZ Room #: [facility] ADM IN M.R.#: [id number] Admission: 03/16/21 Attend Phys: Yan Pedroza DO Discharge: Date of : 33 Report #: [id number] [facility] Test Date: 2021-04-15 Test Time: 14:19:16 Pat Name: DIONICIO HERNANDEZ Department: Room: [facility] Gender: M Voice Over Artist: WINSOME : 1935 Requested By: Yan Pedroza Order Number: [id number] MD: Tico Vernon Measurements Intervals [place] Rate: 103 P: 68 HI: 164 QRS: -66 QRSD: 110 T: 98 QT: 353 QTc: 462 Interpretive Statements Sinus tachycardia Left anterior fascicular block Anterior infarct, old Nonspecific T abnormalities, lateral leads No previous ECG available for comparison Electronically Signed On 04-15-2021 15:43:56 CDT by Tico Vernon [email or web address] <ELECTRONICALLY SIGNED> By: Tico Vernon MD, LOCATED WITHIN [facility] 04/15/21 1543 1419 1419 Tico Vernon MD, FACC /EPI
--- NOTE | 2021-04-15 16:34 | NUR ---
Assumed pt care at 0700. Pt was in his room sleeping. Alert and oriented to self. 9A assessment completed, vss. Denies si/hi, denies pain. Took his meds whole, no difficulty noted. Calm and cooperative with care. PT refused bresakfast and Lunch. Pt insisted on staying in his room. Staff reported pt was seen sitting on the floor. Rapid reponse was called, vss were taking, Labs were drawn. DR Plunkett was notified. At this time pt is recieving NS 500ml in his room. Pt is currently on one on one. Will continue to monitor.
[2021-04-15 17:01] LABS: URINE BILIRUBIN NEGATIVE (Negative); URINE BLOOD TRACE (Negative); URINE COLOR YELLOW; URINE GLUCOSE-RANDOM* NEGATIVE (Negative); URINE KETONES TRACE (Negative); URINE NITRITE-REFLEX NEGATIVE (Negative); URINE PROTEIN (DIPSTICK) NEGATIVE (Negative); URINE UROBILINOGEN 0.2 E.U./dl (0.2-1.0)
[2021-04-15 17:03] LABS: URINE LEUKOCYTES-REFLEX 3+ (Negative)
[2021-04-15 17:11] LABS: SQUAMOUS None Seen /LPF (0-3); URINE RBC 1-2 Rare /HPF (NONE SEEN); URINE WBC-REFLEX >25 Many /HPF (0-5)
[2021-04-15 17:12] LABS: BACTERIA-REFLEX >30 Many /HPF (None Seen)
[2021-04-15 17:13] LABS: URINE CLARITY CLOUDY
[2021-04-15 20:13] VITALS: BP 127/53
--- NOTE | 2021-04-16 04:09 | NUR ---
04-15-21 CARE TRANSFERRED 1914. LATER PT PRESENTS RESTING WITH EYE CLOSED, PT RESPONDS TO TOUCH, PT LETHARGIC, VSS, RR EVEN AND NONLABORED ON 2L 02 99%, R. WRIST IV S/L. OBSERVED NO S/S OF PAIN, OBSERVED NO SI/HI BEHAVIORS. PT CURRENTLY ON 1:1. LATER CONTACTED HCP Margareth TROY NP, AND PT WAS TAKEN OFF 02, PT O2 HAS BEEN MONITOR AT REGULAR INTERVALS AND PT 02 HAS BEEN 94-96% ON RA. PT HEAD OF BED SET AT 30-40DEGREE, LOWEST, LOCKED AND ALARM ON. LATER RESPOND TO BED ALARM AND ASSISTED PT TO BATHROOM, PT HAS MEDIUM FIRM BROWN BM AND BRIEF HEAVY WITH YELLOW URINE, NOTED SLIGHT REDNESS IN JUANA AREA, CLEANED WITH SOAP AND WATER, THEN BARRIER CREAM. OBSERVED PT SHUFFLING GAIT WITH WATER TO DAY ROOM, PT DRANK 240ML OF WATER, PT WILL [id number] TO BE [place] PER [facility] PROTOCOL.
--- NOTE | 2021-04-16 07:23 | NUR ---
Patient was served guardianship papers yesterday afternoon. The hearing is scheduled for May 11 at the [facility] probate courtroom. Attny Felix Mahoney [phone] has been appointed as his councel.
--- NOTE | 2021-04-16 07:41 | NUR ---
Also had discussion with daughter Carlene on the status of placement for patient. No facilities of the 13 that were contacted were willing to accept. SW is still discussing potential placement at [facility] with Viridiana Parikh - [phone]. Faxed patient's updates notes from chart late yesterday afternoon. SW to f/u today. Most facilities will not accept due to the fact that the patient is not vaccinated.
[2021-04-16 09:42] VITALS: BP 106/44
--- NOTE | 2021-04-16 12:34 | NUR ---
Patient care assumed at 0700, he was in his room sleeping, he did not want to come out of his room, monitoring patient on regular intervals, his vital sign are 106/44,84,16,98.1 and 98% of o2 on room air, breath sound clear, active bowel sound, regular HR and RR even and non labored, he is alert and oriented x3, after three hours of assessment, he became irritable and restless I did a bladder scan and straight cath, 1550ml was empty from his bladder, he was comfortable and fell alseep,
[2021-04-16 19:40] VITALS: BP 85/37
[2021-04-16 20:16] VITALS: BP 85/37
--- NOTE | 2021-04-17 00:03 | NUR ---
Assumed care on 04/16/21 @ 1900, seated in the dieudonne chair in the day room. Alternately resting with eyes closed and wakeful. Took crushable meds in pudding, however spit out one Depakote, and seemed to swollow one. Will continue to monitor for safety and comfort as per unit protocol.
[2021-04-17 07:19] LABS: ABSOLUTE NEUTROPHILS 8.5 thou/uL (1.4-8.2); BASOPHILS 0.3 % (0.0-2.0); HEMATOCRIT 26.8 % (42.0-52.0); LYMPHOCYTES 21.9 % (24.0-44.0); MCH 33.2 pg (26.0-34.0); MCHC 33.4 g/dL (28.0-37.0); MCV 99.4 fL (80.0-100.0); MONOCYTES 7.6 % (1.0-8.0); POLYS 70.2 % (36.0-66.0); RDW 15.9 % (10.5-14.5); WBC 12.1 thou/uL (4.0-11.0)
[2021-04-17 07:36] LABS: CALCIUM 8.5 mg/dL (8.5-10.1); CREATININE 1.2 mg/dL (0.7-1.3); MAGNESIUM 2.2 mg/dL (1.8-2.4); POTASSIUM 3.5 mmol/L (3.5-5.1)
[2021-04-17 08:12] LABS: PLATELET COUNT 216 thou/uL (150-400)
[2021-04-17 09:31] VITALS: BP 96/44
--- NOTE | 2021-04-17 12:18 | NUR ---
Assumed care of patient 0700, patient sitting in the day room, he looks better today compare to yesterday, he refused breakfast but drank his ensure, assessment completed, active bowel sound, breath sound clear, his medication crushed and mix with the ensure, he was straight cath, got 1250ml, he is still having urinary retention, Doctor Yovany ordered for the Urology to come see him. He stays in this room, incontinent of bowel and bladder, ambulate with walker, I did not observed any SI/HI, will continue to monitor patient for safety.
--- NOTE | 2021-04-17 18:28 | NUR ---
16 Fr elmore placed without difficulty. Cloudy yellow urine per bag. Balloon inflated without difficulty. Pt tolerated without diff, wanted to stay in bed. No s/o distress.
[2021-04-17 19:41] VITALS: BP 109/44
[2021-04-17 21:40] LABS: HEMATOCRIT 27.2 % (42.0-52.0); HEMOGLOBIN 9.3 gm/dL (14.0-18.0); MCHC 34.1 g/dL (28.0-37.0); MCV 99.7 fL (80.0-100.0); RBC 2.73 mil/uL (4.50-6.00); RDW 16.1 % (10.5-14.5); WBC 9.1 thou/uL (4.0-11.0)
--- NOTE | 2021-04-18 00:04 | NUR ---
PATIENT CARE WAS RESUMED AT 1900. HE WAS IN BED AND DAVIDSON CATHETER IN PLACE WITH SOME 450MLS OF BOB COLORED URINE IN URIBAG.PATIENT REFUSED NURSING ASSISTANCE TO THE BATHROOM AND WAS FOUND FEW MINUTES LATER IN THE BATHROOM BLEEDING AND A POOL OF BLOOD ON THE FLOOR. CALL TO THE HOUSE SUPPERVISOR AND THE [facility] HOSPITALIST. PATIENT WAS CLEANED AND BLADDER IRRIGATED BY THE ANALYTICAL TECHNICIAN. DAVIDSON IS STILL IN PLACE AND NO OUTPUT NOTED AT THIS TIME.PATIENT IS TRYING TO PULL OUT DAVIDSON AND ASKING WHY IT HAS TO BE INSITU, NURSE EDUCATE. CALL BACK TO HOSPITALIST AND SHE REQUESTED A BLADDER SCAN WHICH YEILED 150MLS [employer](HOSPITALIST) WAS NOTIFIED AND SHE SAID SHE IS AWAITING THE UROLOGIST CALL BACK.PATIENT IS CALM RESTING IN BED AND HE DENIES ANY PAINS OR DISCOMFORT AROUND THE BLADDER, ABDOMINAL AND GROIN AREAS. HE TOOK HIS MED WITHOUT ANY ISSUE.LUNGS ARE CLEAR BS ACTIVE X4 QUADS.Q12 MINUTES CHECK IS ONGOING. CONTINUE CARE AND MONITOR
[2021-04-18 06:12] LABS: CALCIUM 9.1 mg/dL (8.5-10.1); CREATININE 1.2 mg/dL (0.7-1.3)
--- NOTE | 2021-04-18 06:35 | NUR ---
BLADDER SCAN IDICATED 150 AND 467 MLS RESPECTIVELY AT 2330 AND 0500. THE DAVIDSON CONTINUES INSITU PER HSOPITALIST INDIGO. FLUSHES DONE TWICE THIS SHIFT WITH RETURNS BUT NO DRAINING. CALL TO UROLOGIST WITH ORDER TO REMOVE CURRENT DAVIDSON AND INSERT 18FR COUDE AND RESTRAIN MITTEN TO AVOID FURTHER PULLOUT OF DAVIDSON.
[2021-04-18 09:13] VITALS: BP 106/53
[2021-04-18 20:04] VITALS: BP 107/44
--- NOTE | 2021-04-18 20:29 | NUR ---
Assumed pt care at 0700. Pt was in the day room confused and alert. ORIENTED PERSON. Assessments completed, vss. lUNGS CLEAR, BOWEL SOUND ACTIVE. PT was confused upon assessment. No c/o pain. No sign of si/hi noted. Took meds whole no difficulty noted. Ambulates with a Dina chair. 0715 pT CATHETER was flushed no return. pt was pulling on his catheter. Pt was redirected. MItten was order and applied to pt. PT continues to try to pull catheter out. PT WAS REDIRECTED. pt was bleeding through his penies as a result of him constantly pulling of the catheter. ONE ON ONE WAS ORDERED. APPROXIMATELY 1115 pt catheter was changed to 18fr coude. PT HAD OUTPUT OF 1000ML OF DARK BLOODY URINE. pt became increasely agitated each time he was redirected by a staff. 1339 Dr PEDROZA was notified, IM 1MG ATIVAN WAS ORDERED AND ADMINISTERED. pt continue to be aggressive, pulling on his catheter. speech writer assessed pt and noted blood draining through pt penies. Dr Pedroza notified. 1736 IM 1 MG OF ATIVAN WAS ADMINISTERED FOR INCREASE AGITATION, per DR pedroza. 1745 pt catheter was flushed 450ml was the output. AT this time pt is in his room with STAFF. WILL CONTINUE TO MONITOR.
--- NOTE | 2021-04-19 03:02 | NUR ---
PT CARE ASSUMED WITH PT IN BED SLEEPING WITH 1:1 STAFF.PT IS A/O TO SELF.PT IS ACCUCHECK ACHS AND HAS A BS OF 58.PT WAS VERY SLEEPY SO GLUCAGON 1MG IM ADMINISTERED.PT BS RECHECKED AND WAS 78.WHEN PT WAKEUP HE HAD SOME ORANGE JUICE AND SNACK.NO PULLING ON DAVIDSON TILL THIS POINT.DAVIDSON FLUSHED WITH RETURNS.DAVIDSON CATHETER IN PLACE.O BEHAVIORAL ISSUES TILL THIS POINT.WILL CONTINUE TO MONITOR PER POC
[2021-04-19 04:59] LABS: HEMATOCRIT 22.8 % (42.0-52.0); HEMOGLOBIN 7.4 gm/dL (14.0-18.0); MCH 32.3 pg (26.0-34.0); MCHC 32.6 g/dL (28.0-37.0); MCV 98.9 fL (80.0-100.0); RBC 2.3 mil/uL (4.50-6.00); RDW 16.2 % (10.5-14.5)
[2021-04-19 05:06] LABS: CALCIUM 8.8 mg/dL (8.5-10.1); CREATININE 1.1 mg/dL (0.7-1.3)
[2021-04-19 10:02] VITALS: BP 96/50
[2021-04-19 11:27] VITALS: BP 102/62
--- NOTE | 2021-04-19 12:43 | NUR ---
1242 RESUMMED CARE FROM OVERNIGHT SHIFT THIS AM PATIENT IN TORI CHAIR SITTING AT TABLE. PATIENT IS ALERT TO SELF ONLY PATIENT APPEARS LETHARGIC NOT EATING OR DRINKING MUCH. DR COATS WAS CALLED BY DR ROMERO TO ORDER BMP ON PATIENT AND DR COATS STATES TO ENCOURAGE FLUIDS. PATIENT UNABLE TO TELL ME ABOUT SI/HI/AH/VH AT PRESENT. PATIENTS LUNGS CLEAR PATIENTS ABDOMEN FLAT BOWEL SOUNDS PRESENT. PATIENT IS SLEEPIMG A LOT AND SOMETIMES IS NOT AROUSABLE. PATIENT HAS NOT DISPLAYED ANY BEHAVIORS WILL CONTINUE TO MONITOR PATIENT FOR SAFETY; AND TO ENCOURAGE FLUIDS AND BEHAVIORS.
[2021-04-19 20:01] VITALS: BP 119/67
--- NOTE | 2021-04-20 03:00 | NUR ---
04-19-21 CARE TRANSFERRED 1899 OBSERVED PT SITTING IN RECLINER IN DAY ROOM. LATER PT LETHARGIC AAOX1, VSS, RR EVEN AND NONLABORED ON RA. OBSERVED NO S/S OF PAIN AND NO SI/HI BEHAVIORS. 300ML OF YELLOW/RED URINE, NOTED BLOOD AT URETHRA/MEATUS. DURING MEDICATION ADMIN PT HAD NO DIFFICULTIES TAKING CRUSHED MED WITH PUDDING. LATER NOTED PT RESTLESS, AND PRN MEDICATION ADMIN WITH PUDDING AND PT ATE 20% OF PUDDING CUP, AND CONSUMED 250ML OF ORANGE JUICE. LATER NOTED PT RESTING WITH EYES CLOSED. OF NOTE, PT IS ON 1:1 CARE.
--- NOTE | 2021-04-20 12:27 | NUR ---
RT Progress Note- Maximo's participation with recreation therapy has been extremely limited this review period. Maximo spends most of his day lying in bed sleeping and is difficult to rise for scheduled programming. Maximo has held a few 1;1 conversations with staff and has a seemingly depressed mood and conversations are short lived. Recreation Therapy team will continue to encourage patient participation and one to one interaction will be offered as needed.
--- NOTE | 2021-04-20 18:47 | NUR ---
Assumed pt care at 0700. Pt was in the day room sleeping. Unable to assess orientation. lungs clear, active bowel sounds. Assessments completed, vss. No meds administered due pt drowsy. No sign of acute distress noted. No sign of si/hi noted. No c/o pain at this time. 0955 Catheter was D/C. Bladder scan 140ml. IV 20 guage was inserted right upper arm. Levofloxacin, and Dextrose was infused this shift, per Dr Loyola order. 4 units of insulin administered to pt at 1734. At this time pt is in the day room sleeping. WILL CONTINUE TO MONITOR.
--- NOTE | 2021-04-21 05:08 | NUR ---
04-21-21 CARE TRANSFERRED CARE 1900 OBSERVED PT SITTING IN RECLINER IN DAY ROOM. LATER NOTED PT RESTLESS WITH FACIAL GRIMICING. HCP Shanta ROMERO, DO AND ORDERS RECEIVED AND ADMIN. PT AAOX1, VSS, RR EVEN AND NONLABORED ON RA. ENCOURAGE PT TO EAT HS SNACK, PT REFUSED. LATER BLADDER SCANNED 551ML, PT WAS STRAIGHTED CATH PER HCP ORDERS AND 750ML YELLOW, SEDIMENT WITH STRONG ODOR, PT TOLERATED WELL. PT WILL CONTINUE TO BE MONITOR PER [facility] PROTOCOL.
--- NOTE | 2021-04-21 14:57 | NUR ---
Dr. Mar and SW spoke with Pt's daughter/DPOA, Carlene, concerning Hospice house. Carlene is in agreement with Pt going to hospice. SW sent referral to Hospice and [facility]. SW will follow up.
--- NOTE | 2021-04-21 16:01 | NUR ---
DUANE recieved a call from the DUANE at [facility]. They are able to accept the Pt today. Pt will d/c @1700 via [employer] (stretcher). DUANE contacted Carlene and informed her of this discharge
--- NOTE | 2021-04-21 17:20 | NUR ---
Assumed pt care at 0700. pt was sedated. Unable to assess orientation. Assessments completed, vss. No meds administered. Bladder scanned at 1515, pt had 254ml. 10mg Morphine was administered at 1511. Pt is on comfort care. Pt was turned q2h. 1715 Pt was DC via strectcher. Pt was d/c with belongings, D/C instrution. 1724 Report called to Charu at [facility]. Pt was on comfort care and was transfered to [facility].
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
== END 2021-04-21 17:24 | disposition hospice, home (50) | DRG 57 ==
LOC: SBH
PROVIDERS: Hospitalist; Nurse Practitioner; Nurse Practitioner Family; ADMIT Psychiatry & Neurology Psychiatry; ATTEND Psychiatry & Neurology Psychiatry
DX: G30.9 Alzheimer's disease, unspecified (principal); F02.81 Dementia in other diseases classified elsewhere, unspecified severity, with behavioral disturbance; N17.9 Acute kidney failure, unspecified; F01.51 Vascular dementia, unspecified severity, with behavioral disturbance; N39.0 Urinary tract infection, site not specified; G93.40 Encephalopathy, unspecified; I10 Essential (primary) hypertension; I25.10 Atherosclerotic heart disease of native coronary artery without angina pectoris; D64.9 Anemia, unspecified; Z66 Do not resuscitate; I95.9 Hypotension, unspecified; E11.649 Type 2 diabetes mellitus with hypoglycemia without coma; E53.8 Deficiency of other specified B group vitamins; D72.829 Elevated white blood cell count, unspecified; R31.0 Gross hematuria; R33.9 Retention of urine, unspecified; Z90.49 Acquired absence of other specified parts of digestive tract; Z95.1 Presence of aortocoronary bypass graft; Z79.82 Long term (current) use of aspirin; Z79.899 Other long term (current) drug therapy; Z86.73 Personal history of transient ischemic attack (TIA), and cerebral infarction without residual deficits
CPT/HCPCS: 10880

== ENCOUNTER 2021-03-16 22:09 | Emergency (ER) | payer OTHER ==
[~2021-03-16] VITALS: Ht 177.8 cm; Wt 54.4 kg
--- NOTE | ~2021-03-16 | EMS ---
[address] [address] EMS Patient Care Report Name: DIONICIO HERNANDEZ Room #: DEP CHENCHO Jones#: [id number] Admission: 03/16/21 Attend Phys: Discharge: 03/16/21 Date of : 34 Report #: [id number] THIS REPORT FOR: //name// Report Transmitted: 03/17/2021 09:18 EMS Care Summary [place], [place]/[facility] Incident [id number] @ 03/16/2021 21:00 Incident [address] [place] [address] Patient DIONICIO HERNANDEZ Male, 86 Years 1935 Patient Address [address] [place] [address] Patient History Cardiac Condition - Other, Patient Allergies No known allergies, Patient Medications None Reported, Chief Complaint PATIENT TRANSFER Disposition Transported No Lights/Weott Dispatch Reason Transfer/Interfacility/Palliative Care Transported To [facility] Narrative M507 DISPATCHED NONEMERGENCY ON A PATIENT TRANSFER AT [facility] RM 4014 ARRIVED TO FIND A 86/M AWAITING TRANSFER TO [facility] FOR PSYCH [address] [address] EMS Patient Care Report Name: DIONICIO HERNANDEZ Room #: DEP ER SeverinoClyde#: [id number] Admission: 03/16/21 Attend Phys: Discharge: 03/16/21 Date of : 34 Report #: [id number] EVALUATIION. PT HAD BECOME AGITATED WITH STAFF AT [facility] AND THEY HAVE DECIDED TO SEND HIM TO GET PSYCH HELP AT [facility]. BLS ASSESSMENT COMPLETED, NO ABNORMALITIES NOTED. VITALS, POSITION OF COMFORT ON THE STRETCHER. TRANSPORTED NONEMERGENCY TO [facility] ER ROOM 2 WITHOUT INCIDENT. PT CARE HANDED OFF TO ED STAFF AT [facility]. NO EXCEPTIONS NOTED. Initial Vitals @21:55P: 59,R: 18,BP: 126/66,Pain: 0/10,GCS: 15,CO: 3,SpO2: 98,Revised Trauma: 12, @21:51P: 60,R: 18,BP: 125/62,Pain: 0/10,GCS: 15,SpO2: 99,Revised Trauma: 12, Assessments @21:57MENTAL:No Abnormalities,SKIN:No Abnormalities,HEENT:Head/Face: No Abnormalities,Eyes: No Abnormalities,Neck/Airway: No Abnormalities,LUNG SOUNDS:General: No Abnormalities,Left Upper: No Abnormalities,Right Upper: No Abnormalities,Left Lower: No Abnormalities,Right Lower: No Abnormalities,ABDOMEN:General: No Abnormalities,Left Upper: No Abnormalities,Right Upper: No Abnormalities,Left Lower: No Abnormalities,Right Lower: No Abnormalities,PELVIS//GI:No Abnormalities,EXTREMITIES:Left Arm: No Abnormalities,Right Arm: No Abnormalities,Left Leg: No Abnormalities,Right Leg: No Abnormalities,PULSE:NEURO:No Abnormalities, Impression Need for continuous medical supervision Procedures @21:57StretcherResponse: Unchanged@21:57BLS AssessmentResponse: Unchanged Timeline 18:13,Call Received 18:13,Dispatch Notified 21:00,Dispatched 21:01,En Route 21:14,On Scene 21:30,At Patient 21:51,BP: 125/62 M,PULSE: 60,RR: 18 R,SPO2: 99 Ox,ETCO2: ,BG: ,PAIN: 0,GCS: 15, 21:53,Depart Scene 21:55,BP: 126/66 M,PULSE: 59,RR: 18 R,SPO2: 98 Ox,ETCO2: ,BG: ,PAIN: 0,GCS: 15, [facility] [address] [place] [address] EMS Patient Care Report Name: HERNANDEZDIONICIO Room #: DEP Karen#: [id number] Admission: 03/16/21 Attend Phys: Discharge: 03/16/21 Date of : 34 Report #: [id number] 21:57,Stretcher,Response: Unchanged 21:57,BLS Assessment,Response: Unchanged 22:04,At Destination 22:17,Call Closed Disclaimer v1.1 Copyright 2020 [employer] This EMS Care Summary contains data elements from the applicable legal record (which may be displayed differently). It is designed to provide pertinent information for the following purposes: continuity of care, clinical quality, and state data reporting. The complete legal record is available to ED staff and administrators of the receiving hospital in [employer] Patient Tracker. All data is provided "as is."
[2021-03-16 23:19] VITALS: BP 101/47
== END 2021-03-16 23:20 ==
LOC: ER 22:09
DX: G30.8 Other Alzheimer's disease (principal); F02.81 Dementia in other diseases classified elsewhere, unspecified severity, with behavioral disturbance; Z20.822 Contact with and (suspected) exposure to COVID-19